=== PATIENT | male | born 1985 | race African-American/Black ===

== ENCOUNTER 2017-04-07 15:53 | Inpatient (IN) | payer SELFPAY ==
[2017-04-07] MEDS ORDERED: Ondansetron HCl/PF 4 MG/2 ML Vial ONE (16:26)
[2017-04-07] MEDS ORDERED: Morphine 4 MG/ML VIAL ONE (16:39)
[2017-04-07 16:45] LABS: #Basophils 0.2 thou/uL (0.0-0.2); #Eosinphils 0.1 thou/uL (0.0-0.7); #Lymphocytes 2.4 thou/uL (1.20-3.40); #Monocytes 1.2 thou/uL (0.11-0.59); #Neutrophils 10.6 thou/uL (1.40-6.50); %Basophils 1.1 % (0.0-1.0); %Eosinophils 0.7 % (0.0-10.0); %Lymphocytes 16.6 % (21.0-51.0); %Monocytes 8.5 % (0.0-10.0); Hematocrit 55.5 % (42.0-52.0); Mean Platelet Volume 7.6 fL (7.4-10.4); Red Blood Cell (RBC) Count 5.93 mill/uL (4.70-6.10); White Blood Cell (WBC) Count 14.6 thou/uL (4.8-10.8)
[2017-04-07 17:06] LABS: ALT (SGPT) 22 U/L (8-55); AST (SGOT) 18 U/L (5-34); Alkaline Phosphatase 115 U/L (40-150); Anion Gap 22 mmol/L (10-20); BUN (Urea Nitrogen) 33 mg/dL (8.9-20.6); Bilirubin, Total 0.6 mg/dL (0.2-1.2); Calc. Creatinine Clearance 0 mL/min (70-130); Carbon Dioxide 26 mmol/L (22-29); Chloride 90 mmol/L (98-107); Estimated GFR-MDRD 19; Globulin 4.5 g/dL (2.4-3.5); Lipase 36 U/L (8-78); Protein, Total 10.1 g/dL (6.0-8.3)
[2017-04-07 18:32] LABS: Bilirubin Small (Negative); Blood, Urine Negative (Negative); Glucose, Urine (Dipstick) Negative (Negative); Ketone, Urine Trace mg/dL (Negative); Nitrite Negative (Negative); Protein, Urine (Dipstick) 300 mg/dL (Neg-Trace); Urobilinogen 0.2 mg/dL (0.2-1.0)
[2017-04-07 18:34] LABS: RBC/HPF 0-3 HPF (0-3)
[2017-04-07 18:42] LABS: Potassium, Urine 70.8 mmol/L
[2017-04-07 18:43] LABS: Amphetamine Not Detected (NotDetected); Methadone Not Detected (NotDetected); Methamphetamine Detected (NotDetected)
--- NOTE | 2017-04-07 18:46 | CT ---
CT ABDOMEN AND PELVIS NONCONTRAST: History: Left flank pain. FINDINGS: Each renal collecting system, uterus, and urinary bladder are decompressed. A 0.2 cm calculus is pres ent within a nondilated césar at the inferior pole of the left kidney. Lack of contrast limits evaluation for other abnormalities. No evidence of bowel obstruction. There i s S-shaped curvature of the thoracolumbar spine. IMPRESSION: Tiny nonobstructing left renal calculus. POS: IVET
[2017-04-07 18:50] LABS: Bacteria/HPF 4+ HPF (None Seen); Hyaline Casts/LPF NONE SEEN LPF (0-3 Hyaline); Yeast-All Forms None Seen HPF (None Seen)
[2017-04-07 20:31] LABS: Acetaminophen Less than 6.0 mcg/mL (10.0-30.0); Salicylate Less than 8.0 mg/dL (15.0-30.0)
[2017-04-07] MEDS ORDERED: cefTRIAXone\\ROCEPHIN 2 GM in Sodium Chloride 0.9% 100 ML IVPB SCH (20:45)
[2017-04-07] MEDS ORDERED: Potassium Chloride 40 MEQ in Sodium Chloride 0.9% 500 ML IVPB SCH (21:30)
--- NOTE | 2017-04-07 22:18 | CON ---
DATE OF CONSULTATION: 04/07/2017 REASON FOR CONSULTATION: Elevated creatinine and hyperkalemia. HISTORY OF PRESENT ILLNESS: A 31-year-old gentleman who basically presented to the emergency room wi th nausea, vomiting, and abdominal pain. The patient was noted to have a creatinine of 4.3. The pat gabriel has a history of drug use and prior creatinine was 0.9 on 03/19/2017, so this is an acute increa se in the last few days. The patient has a history of opioids as well as methamphetamines as well as cocaine in his system. The patient can give no further inciting cause. PAST MEDICAL HISTORY: Significant for renal calculus, nonobstructing. SOCIAL HISTORY: History of drug use. ALLERGIES: Reviewed. HOME MEDICATIONS: List reviewed. REVIEW OF SYSTEMS: Fifteen point review of systems was performed and negative except positives noted above. GENERAL: Weakness- HEAD: Headache- NECK: No swelling or lumps. NOSE: No epistaxis or discharge. EYES: No diplopia or pain. RESPIRATORY: Dyspnea- CARDIOVASCULAR: Chest pain- GASTROINTESTINAL: Nausea- /HAND THERMAL CUTTER: Hematuria- MUSCULOSKELETAL: No joint pain. NEUROPSYCHIATIC SYSTEMS: No suicidal ideation. No ideation. SKIN: Denies any rash or ulcer. CONSTITUTIONAL: No fever or chills. HOSPITAL MEDICATIONS: List reviewed. PHYSICAL EXAMINATION: GENERAL: Patient is awake, alert. VITAL SIGNS: Afebrile, pulse 75, breathing at 16, blood pressure was 160/70. GENERAL APPEARANCE AND MENTAL STATUS: Fair. HEAD/NECK: Normocephalic, atraumatic. EYES: EOMI. No deformity. EARS: Clear. No ulcers. NOSE: Intact. No lesions. MOUTH: Clear. No discharge. THROAT: Clear. No exudate. LUNGS: Clear. No crackles. CARDIAC: S1, S2. No rub. ABDOMEN: Benign. BS+. GENITALIA/RECTUM: Catherine absent. BACK/EXTREMITIES: Edema 0+ Ulcer- NEUROLOGICAL: Alert and motor intact. SKIN: Rash- Bruise- LYMPHATICS: Edema- Ulcer- LABORATORY DATA: Showed creatinine 4.3. ASSESSMENT AND RECOMMENDATIONS: 1. Acute kidney injury with chronic kidney disease, multifactorial cocaine can cause renal vasoconst riction and acute kidney injury in the setting of dehydration. Overall, no indication for dialysis. Continue gentle hydration. 2. Hypokalemia, recommend gentle potassium replacement. No urgent indication for dialysis at this t sraah.
[2017-04-07] MEDS ORDERED: Ondansetron HCl/PF 4 MG/2 ML Vial IVP PRN ×2 (22:36→22:39)
[2017-04-07] MEDS ORDERED: Ondansetron ODT 4 MG TAB SL PRN (22:36)
[2017-04-07] MEDS ORDERED: Bisacodyl 5 MG TAB PO PRN (22:39)
[2017-04-07] MEDS ORDERED: hydrALAZINE 20 MG/ML VIAL SLOW IVP PRN (22:39)
[2017-04-07] MEDS ORDERED: Benzonatate 100 MG CAP PO PRN (22:39)
[2017-04-07] MEDS ORDERED: cloNIDine 0.1 MG TAB PO PRN (22:39)
[2017-04-07] MEDS ORDERED: Nitroglycerin 0.4 MG TAB (25 Tab Bottle) SL PRN (22:39)
[2017-04-07] MEDS ORDERED: Loratadine 10 MG TAB PO PRN (22:39)
[2017-04-07] MEDS ORDERED: Calcium Carbonate 500 MG ChewTAB PO PRN (22:39)
[2017-04-07] MEDS ORDERED: traMADol HCl 50 MG TAB PO PRN (22:39)
[2017-04-07] MEDS ORDERED: Diabetic Tussin 200 MG/10 ML UDCUP PO PRN (22:39)
[2017-04-07] MEDS ORDERED: Acetaminophen 325 MG TAB PO PRN (22:39)
[2017-04-07] MEDS ORDERED: Senokot 8.6 MG TAB PO PRN (22:39)
[2017-04-07] MEDS ORDERED: Lorazepam 2 MG/ML VIAL SLOW IVP PRN (22:39)
[2017-04-07] MEDS ORDERED: Sodium Chloride 0.9% 1,000 ML IV SCH (22:45)
[2017-04-07 22:53] VITALS: BMI 23.5
[2017-04-07] MEDS ORDERED: Famotidine/PF 20 mg/2ml Vial SLOW IVP SCH (23:00)
[2017-04-07] MEDS ORDERED: Heparin 5,000 UNITS/ML VIAL SC SCH (23:00)
[2017-04-07] MEDS: Sodium Chloride 0.9% 1,000 ML IV SCH (23:32)
--- NOTE | 2017-04-08 00:49 | HP ---
DATE OF ADMISSION: 04/07/2017 PRIMARY CARE PHYSICIAN: None. CHIEF COMPLAINT: Abdominal pain and vomiting. HISTORY OF PRESENT ILLNESS: Mr. London is a 31-year-old -Algerian male without any significant past medical history, who presented to the ER with the above-mentioned complaint. History is mainly obtained by the patient himself and case has been discussed with the admitting ER physician. Electr onic medical records have been reviewed. According to Mr. London, he has been on cocaine binge for the last 3 days. He started to have signifi cant abdominal pain about 2 days ago that was followed with violent, vomiting after he ate one meal a t [employer]. It has lasted for at least last 2 days. It is not associated with any diarrhea, hemato chezia, or hematemesis. His abdominal pain is mainly left-sided and 10/10 in intensity. Nonradiatin g symptoms. No fevers, but he has noticed chills. He has also noticed that his urine is foul smelli ng and dark and he has burning with urination as well. With these symptoms, he presented to the [facility] room. In the emergency room, his initial workup included a CT scan of the abdomen and pelvis, which did not show any hydroureteronephrosis or obstruction or pancreatitis. He, however, did have gross abnormal ities in his serum chemistries with metabolic acidosis and acute renal insufficiency with a creatinin e of 4.30 and BUN of 33 with estimated GFR of 19. His known creatinine from earlier this month on was 0.98. His potassium is 3.4 today. His urine shows multiple bacteria, wbc's and trace k etones. His urine drug screen is positive for opiates, methamphetamines, cocaine and cannabinoids. His salicylate level, acetaminophen level and alcohol level are unremarkable. The patient denies any alcohol binge. He was given almost 3 liters of IV fluids in the emergency room along with Rocephin and is now being admitted for acute renal insufficiency. PAST MEDICAL HISTORY: None reviewed with the patient. PAST SURGICAL HISTORY: None reviewed with the patient ALLERGIES: No known medication allergies. CURRENT MEDICATIONS: None. SOCIAL HISTORY: The patient smokes 1-1/2 pack of cigarettes per day and routinely uses cocaine. He vehemently denies using amphetamines or narcotics. He has been smoking marijuana. FAMILY HISTORY: No significant family history of any kidney problems. His grandfather on both side had diabetes. REVIEW OF SYSTEMS: The following complete review of systems was negative, unless otherwise mentioned in the HPI or below: Constitutional: Weight loss or gain, ability to conduct usual activities. Skin: Rash, itching. Eyes: Double vision, pain. ENT/Mouth: Nose bleeding, neck stiffness, pain, tenderness. Cardiovascular: Palpitations, dyspnea on exertion, orthopnea. Respiratory: Shortness of breath, wheezing, cough, hemoptysis, fever or night sweats. Gastrointestinal: Poor appetite, abdominal pain, heartburn, nausea, vomiting, constipation, or diarr hea. Genitourinary: Urgency, frequency, dysuria, nocturia. Musculoskeletal: Pain, swelling. Neurologic/Psychiatric: Anxiety, depression. Allergy/Immunologic: Skin rash, bleeding tendency. Otherwise negative except as stated per HPI. It is negative except for those mentioned in the history and physical. LABORATORY DATA: CBC shows WBCs at 14.6 with 73% neutrophils, hemoglobin 18.7, and platelet count of 219. Serum chemistries show sodium of 135, potassium 3.4, chloride 90, anion gap 22, BUN 33, creati nine 4.30, calcium 11, lipase 36. Urinalysis shows wbc's, +4 bacteria, small bilirubin. Urine drug screen is positive for opiates, methamphetamines, cocaine and cannabinoids. CT scan of the abdomen a nd pelvis is done in the emergency room and per my review, has no acute obstruction. He has a tiny n onobstructing left renal calculi. No hydroureteronephrosis is seen. PHYSICAL EXAMINATION: VITAL SIGNS: Upon presentation include blood pressure 138/109, pulse of 86, respirations 18, tempera ture 98.6, saturating 98% on room air. GENERAL: No acute distress, lying comfortably in bed, acute, alert, oriented x3. HEENT: Mucous membrane is dry. No oropharyngeal exudate or erythema. Head is normocephalic, atraum atic. Pupils are equal, reactive to light and accommodation. Extraocular movements are intact. NECK: Supple without any lymphadenopathy, JVD or bruit. CHEST: Clear to auscultation without any wheezing, rales or rhonchi. ABDOMEN: Nondistended. No guarding, rebound, or rigidity. Mildly tender to palpation in the epigas tric region. EXTREMITIES: Free of any cyanosis, clubbing, or edema. NEUROLOGIC: Nonfocal. SKIN: Free of any rashes or bruises. Feels warm and dry to touch. PSYCHIATRIC: Normal affect. IMPRESSION AND PLAN: 1. Acute renal insufficiency. This is likely a combination of dehydration and giving prerenal azote maricruz along with renal vasospasm due to cocaine abuse. Acute tubular necrosis is most likely the scena yariel. At this time, he will be resuscitated with generous IV fluids and we will avoid all nephrotoxic medications, I have discussed his drug abuse and at this time, he is agreeable to change his behavio rs. We will also consult Nephrology for further recommendations. We will monitor renal function mala sely. 2. Hypokalemia. It will be replaced and rechecked. 3. Anion gap metabolic acidosis. This is secondary to acute renal insufficiency. Once again, we wi ll continue the IV fluids and recheck. 4. Urinary tract infection. He has received Rocephin in the emergency room, and we will continue e . Urine cultures will be sent. 5. Code status: FULL CODE. 6. Add deep venous thrombosis and gastrointestinal prophylaxis. 7. Add p.r.n. medication orders. DISPOSITION: The patient is currently being admitted for acute renal insufficiency and urinary tract infection. Further management will depend upon his clinical course. Estimated length of stay is at least 2 to 3 midnights.
[2017-04-08 05:35] LABS: #Basophils 0.1 thou/uL (0.0-0.2); #Eosinphils 0.1 thou/uL (0.0-0.7); #Lymphocytes 2.1 thou/uL (1.20-3.40); #Monocytes 1.1 thou/uL (0.11-0.59); %Basophils 0.7 % (0.0-1.0); %Eosinophils 1.3 % (0.0-10.0); %Lymphocytes 25.4 % (21.0-51.0); Mean Platelet Volume 7.8 fL (7.4-10.4); Red Blood Cell (RBC) Count 4.43 mill/uL (4.70-6.10); White Blood Cell (WBC) Count 8.4 thou/uL (4.8-10.8)
[2017-04-08 05:53] LABS: Anion Gap 13 mmol/L (10-20); BUN (Urea Nitrogen) 33 mg/dL (8.9-20.6); Calc. Creatinine Clearance 38 mL/min (70-130); Calcium 8.2 mg/dL (7.8-10.44); Carbon Dioxide 25 mmol/L (22-29); Chloride 102 mmol/L (98-107); Estimated GFR-MDRD 30
[2017-04-08 08:03] VITALS: TEMP 98.3
[2017-04-08] MEDS ORDERED: FLU VACC QS2017-18 36 mo. & older 0.5 ML SYRINGE IM ONE (09:00)
[2017-04-08] MEDS ORDERED: Heparin 5,000 UNITS/ML VIAL SC SCH ×2 (09:00→21:00)
[2017-04-08] MEDS: Sodium Chloride 0.9% 1,000 ML IV SCH (10:13)
--- NOTE | 2017-04-08 12:03 | PRG ---
DATE OF SERVICE: 04/08/2017 SUBJECTIVE: This is a 31-year-old gentleman being seen for acute kidney injury. The patient denies any nausea, vomiting, or chest pain. PHYSICAL EXAMINATION: GENERAL: Patient is awake, alert. VITAL SIGNS: Afebrile, pulse 50, breathing at 16, blood pressure 110/67. OBJECTIVE: See above. Awake, alert, in no acute distress. GENERAL APPEARANCE AND MENTAL STATUS: Fair. HEAD/NECK: Normocephalic. Atraumatic. EYES: EOMI. No deformity. EARS: Clear. No ulcers. NOSE: Intact. No lesions. MOUTH: Clear. No discharge. THROAT: Clear. No exudate. LUNGS: Clear. No crackles. CARDIAC: S1, S2. No rub. ABDOMEN: Benign. BS+. GENITALIA/RECTUM: Catherine absent. BACK/EXTREMITIES: Edema 0+ Ulcer- NEUROLOGICAL: Alert and motor intact. SKIN: Rash- Bruise- LYMPHATICS: Edema- Ulcer- LABORATORY: Creatinine is 2.9. IMPRESSION: 1. Acute kidney injury, improving. 2. Hypokalemia, stable. 3. Hyponatremia, stable. No indication for dialysis.
--- NOTE | 2017-04-08 12:15 | PDOC.PN ---
- Subjective Encounter Start Date: 04/08/17 Encounter Start Time: 08:20 -: old records requested/rev Patient seen and examined. No new complaints. No overnight events - Objective MAR Reviewed: Yes Vital Signs & Weight: Vital Signs (12 hours) Temp Pulse Resp BP Pulse Ox 04/08/17 08:03 98.3 F 58 L 16 110/67 98 04/08/17 04:00 98.1 F 65 20 111/74 100 Weight Weight 168 lb 6.4 oz I&O: 04/07/17 04/08/17 04/09/17 06:59 06:59 06:59 Intake Total 1540 Output Total 500 Balance 1040 Result Diagrams: 04/08/17 04:18 04/08/17 04:18 Radiology Reviewed by me: Yes Phys Exam - Physical Examination Constitutional: NAD HEENT: PERRLA, moist MMs, sclera anicteric Neck: no JVD, supple Respiratory: no wheezing, no rales, no rhonchi Cardiovascular: RRR, no significant murmur, no rub Gastrointestinal: soft, non-tender, no distention, positive bowel sounds Musculoskeletal: no edema, pulses present Neurological: non-focal, normal sensation Psychiatric: normal affect, A&O x 3 Skin: no rash, normal turgor Dx/Plan (1) Acute kidney failure Status: Acute (2) Polysubstance abuse Code(s): F19.10 - OTHER PSYCHOACTIVE SUBSTANCE ABUSE, UNCOMPLICATED Status: Chronic (3) Renal calculus, left Code(s): N20.0 - CALCULUS OF KIDNEY Status: Chronic (4) UTI (urinary tract infection) Status: Acute (5) Hypokalemia Code(s): E87.6 - HYPOKALEMIA Status: Resolved (6) Hyponatremia Code(s): E87.1 - HYPO-OSMOLALITY AND HYPONATREMIA Status: Resolved (7) Metabolic acidosis Code(s): E87.2 - ACIDOSIS Status: Resolved - Plan cont current plan of care, plan discussed w/ family, continue antibiotics * renal function improving * continue IVF * continue rocephin * follow culture * repeat labs tomorrow * counselled to avoid polysubstance. Review of Systems - Review of Systems ENT: negative: Ear Pain, Ear Discharge, Nose Pain, Nose Discharge, Nose Congestion, Mouth Pain, Mouth Swelling, Throat Pain, Throat Swelling, Other Respiratory: negative: Cough, Dry, Shortness of Breath, Hemoptysis, SOB with Excertion, Pleuritic Pain, Sputum, Wheezing Cardiovascular: negative: Chest Pain, Palpitations, Orthopnea, Paroxysmal Noc. Dyspnea, Edema, Light Headedness, Other Gastrointestinal: negative: Nausea, Vomiting, Abdominal Pain, Diarrhea, Constipation, Melena, Hematochezia, Other Genitourinary: negative: Dysuria, Frequency, Incontinence, Hematuria, Retention , Other Musculoskeletal: negative: Neck Pain, Shoulder Pain, Arm Pain, Back Pain, Hand Pain, Leg Pain, Foot Pain, Other Skin: negative: Rash, Lesions, Arnie, Bruising, Other - Medications/Allergies Allergies/Adverse Reactions: Allergies Allergy/AdvReac Type Severity Reaction Status Date / Time No Known Drug Allergies Allergy Verified 04/07/17 22:48 Medications: Current Medications Acetaminophen (Tylenol) 650 mg PO Q4H PRN PRN Reason: Headache/Fever or Pain Benzonatate (Tessalon) 100 mg PO Q4H PRN PRN Reason: Cough Bisacodyl (Dulcolax) 10 mg PO DAILYPRN PRN PRN Reason: Constipation Calcium Carbonate (Tums) 1,000 mg PO Q4H PRN PRN Reason: Heartburn or Indigestion Clonidine (Catapres) 0.1 mg PO Q4H PRN PRN Reason: Systolic BP > 160 Famotidine (Pepcid) 20 mg SLOW IVP Q24HR [facility] Guaifenesin (Robitussin Sf) 200 mg PO Q4H PRN PRN Reason: Cough Heparin Sodium (Porcine) (Heparin) 5,000 units SC BID [facility] Last Admin: 04/08/17 10:18 Dose: 5,000 units Hydralazine HCl (Apresoline) 10 mg SLOW IVP Q4H PRN PRN Reason: Systolic BP > 170 Ceftriaxone Sodium 1 gm/ (Sodium Chloride) 100 mls @ 200 mls/hr IVPB 2100 [facility] Sodium Chloride (Normal Saline 0.9%) 1,000 mls @ 200 mls/hr IV .Q5H [facility] Last Admin: 04/08/17 10:13 Dose: 1,000 mls Loratadine (Claritin) 10 mg PO DAILYPRN PRN PRN Reason: Sinus Symptoms Lorazepam (Ativan) 1 mg SLOW IVP Q4H PRN PRN Reason: Anxiety/Agitation Nitroglycerin (Nitrostat) 0.4 mg SL Q5MIN PRN PRN Reason: Chest Pain Ondansetron HCl (Zofran) 4 mg IVP Q6H PRN PRN Reason: Nausea/Vomiting Senna (Senokot) 2 tab PO HSPRN PRN PRN Reason: Constipation Tramadol HCl (Ultram) 50 mg PO Q12H PRN PRN Reason: Moderate Pain (4-6)
[2017-04-08] MEDS ORDERED: traMADol HCl 50 MG TAB PO PRN (13:38)
[2017-04-08] MEDS ORDERED: Senokot 8.6 MG TAB PO PRN (13:38)
[2017-04-08] MEDS ORDERED: Ondansetron HCl/PF 4 MG/2 ML Vial SLOW IVP PRN (13:39)
[2017-04-08] MEDS ORDERED: Ondansetron ODT 4 MG TAB SL PRN (13:39)
[2017-04-08] MEDS ORDERED: Nitroglycerin 0.4 MG TAB (25 Tab Bottle) SL PRN (13:39)
[2017-04-08] MEDS ORDERED: Lorazepam 2 MG/ML VIAL SLOW IVP PRN (13:40)
[2017-04-08] MEDS ORDERED: Loratadine 10 MG TAB PO PRN (13:40)
[2017-04-08] MEDS ORDERED: hydrALAZINE 20 MG/ML VIAL SLOW IVP PRN (13:41)
[2017-04-08] MEDS ORDERED: Diabetic Tussin 200 MG/10 ML UDCUP PO PRN (13:42)
[2017-04-08] MEDS ORDERED: cloNIDine 0.1 MG TAB PO PRN (13:42)
[2017-04-08] MEDS ORDERED: Acetaminophen 325 MG TAB PO PRN (13:43)
[2017-04-08] MEDS ORDERED: Calcium Carbonate 500 MG ChewTAB PO PRN (13:43)
[2017-04-08] MEDS ORDERED: Bisacodyl 10 MG SUPP PR PRN (13:43)
[2017-04-08] MEDS ORDERED: Sodium Chloride 0.9% 1,000 ML IV SCH (13:45)
[2017-04-08 17:24] VITALS: BP 122/71
[2017-04-08] MEDS ORDERED: cefTRIAXone\\ROCEPHIN 1 GM in Sodium Chloride 0.9% 100 ML IVPB SCH (21:00)
[2017-04-08] MEDS ORDERED: Famotidine/PF 20 mg/2ml Vial SLOW IVP SCH ×2 (21:00)
[2017-04-08] MEDS ORDERED: cefTRIAXone\\ROCEPHIN 1 GM, Syringe 0.4 ML in Sterile Water 9.6 ML SLOW IVP SCH (21:00)
--- NOTE | 2017-04-09 13:20 | DIS ---
DATE OF ADMISSION: 04/07/2017 DATE OF DISCHARGE: 04/08/2017 PRIMARY CARE PHYSICIAN: [facility] call admission. DISCHARGE DISPOSITION: Home against medical advice. PRIMARY DISCHARGE DIAGNOSES: Acute kidney failure, urinary tract infection, polysubstance abuse, lef t renal calculus, hypokalemia, hyponatremia, and metabolic acidosis. PRIMARY PROCEDURE/OPERATION: None. RADIOLOGICAL INVESTIGATION: Abdomen and pelvis CT scan showed nonobstructive left renal calculus. SIGNIFICANT LABORATORY DATA: CBC: WBC 8.4, hemoglobin 13.8, platelets 170, sodium 136, potassium 3. 7, BUN 33, creatinine 2.97, calcium 8.2. LFT normal, lipase 36. Urinalysis suggestive of UTI. Urin e drug screen positive for methamphetamine, cocaine, cannabinoids and opiates. Serum drug screen neg ative. Urine culture negative. DISCHARGE MEDICATIONS: Patient left against medical advice without any prescriptions. CONTRAINDICATIONS: None. CODE STATUS: FULL CODE. INPATIENT WOUND CARE COORDINATOR: Dr. Cool was following while in hospital. TEST RESULTS PENDING ON DISCHARGE: None. ALLERGIES: No known drug allergy. DISCHARGE PLAN: Post hospital, patient will follow up with primary care physician. HOSPITAL COURSE: A 31-year-old male who has polysubstance abuse who was admitted by Dr. Ortiz, ple ase see her H&P for further details. The patient presented to emergency room with nausea, vomiting, and abdominal pain. In the emergency room, CT abdomen and pelvis was done which showed nonobstructiv e left renal calculus. He was found with acute kidney failure. His urine drug screen was positive f or drugs including cocaine, marijuana, opiates, and methamphetamine. Patient was admitted to medical floor. He was given IV fluid. Initially, he had hypokalemia, metabolic acidosis, hyponatremia, all resolved. Patient's renal function was improving, but he was not ready for discharge. The patient was getting antibiotic therapy and his leukocytosis improved. He had no fever while in h ospital. This patient decided to leave against medical advice. The patient is seen and examined at bedside today. Please see my progress note from today for furthe r details. The patient left without any prescription.
== END 2017-04-08 18:23 | disposition left against medical advice (07) | DRG 683 ==
LOC: ERS 15:53 → ERHOLD 19:52 → T4-A 22:18 → UNDODISIN 04-08 13:00
PROVIDERS: ADMIT Internal Medicine; ATTEND Internal Medicine
DX: N17.9 Acute kidney failure, unspecified (principal); N39.0 Urinary tract infection, site not specified; E87.2 Acidosis; E87.1 Hypo-osmolality and hyponatremia; F19.10 Other psychoactive substance abuse, uncomplicated; N20.0 Calculus of kidney; E87.6 Hypokalemia; E86.0 Dehydration; Z53.21 Procedure and treatment not carried out due to patient leaving prior to being seen by health care provider; F17.210 Nicotine dependence, cigarettes, uncomplicated; F12.10 Cannabis abuse, uncomplicated; F14.188 Cocaine abuse with other cocaine-induced disorder; Z23 Encounter for immunization
CPT/HCPCS: 36415; 74176; 80048; 80053; 80306; 80307; 81003; 81015; 82550; 83690; 84133; 84300; 85025; 87086; 90471; 90682; 90732; 96361; 96365; 96375; A4216; G0008; G0009; J0696; J1644; J2270; J2405; J3480; J7050; Q2036; S0028

== ENCOUNTER 2018-12-10 08:24 | Inpatient (IN) | payer OTHER, SELFPAY ==
[2018-12-10] MEDS ORDERED: Midazolam HCl 5 mg/ml Vial ONE (08:30)
[2018-12-10] MEDS ORDERED: fentaNYL Citrate/PF 2,000 MCG in Sodium Chloride 0.9% 60 ML IV SCH (08:33)
[2018-12-10] MEDS ORDERED: Fentanyl 100 MCG/2 ML VIAL ONE (08:41)
[2018-12-10] MEDS ORDERED: diphenhydrAMINE 50 MG/ML VIAL ONE (08:42)
[2018-12-10] MEDS ORDERED: methylPREDNISolone Sod Succ/PF 125 MG/2 ML VIAL ONE (08:42)
[2018-12-10] MEDS ORDERED: Famotidine/PF 20 mg/2ml Vial ONE (08:42)
[2018-12-10 09:05] LABS: #Basophils 0.1 thou/uL (0.0-0.2); #Eosinphils 0.2 thou/uL (0.0-0.7); #Lymphocytes 1.9 thou/uL (1.20-3.40); #Monocytes 0.4 thou/uL (0.11-0.59); #Neutrophils 3.2 thou/uL (1.40-6.50); %Basophils 1.5 % (0.0-1.0); %Eosinophils 3.5 % (0.0-10.0); %Lymphocytes 32.2 % (21.0-51.0); %Monocytes 7.4 % (0.0-10.0); %Neutrophils 55.5 % (42.0-75.0); Hemoglobin 12.7 g/dL (14.0-18.0); Mean Corpuscular HGB CONC 32.6 g/dL (32.0-36.0); Mean Corpuscular Hemoglobin 28.7 pg (27.0-31.0); Mean Corpuscular Volume 88.1 fL (78.0-98.0); Mean Platelet Volume 7.8 fL (7.4-10.4); Platelet Count 202 thou/uL (130-400); RBC Distribution Width 11.9 % (11.5-14.5); Red Blood Cell (RBC) Count 4.41 mill/uL (4.70-6.10); White Blood Cell (WBC) Count 5.7 thou/uL (4.8-10.8)
[2018-12-10 09:23] LABS: Actual Bicarbonate (HCO3a) 24.1 mEq/L (22-28); Analyzer IN Cardio ER; Base Excess (BEa) -2.1 mEq/L (-2.0 to +3.0); Calcium, Ionized 1.17 mmol/L (1.12-1.30); Carboxyhemoglobin (COHb) 0.3 gm% (0.0-3.0); Hemoglobin (Hb) 13.6 g/dL (14.0-18.0); O2 Tension (PaO2) 94.4 mmHg (80.0-100.0); Potassium - ABG Lab 4.39 mmol/L (3.70-5.30); pH, Arterial 7.33 (7.35-7.45)
--- NOTE | 2018-12-10 09:23 | RAD ---
XR Chest 1 View Portable 12/10/2018 8:44 AM Indication: Elevated d-dimer, productive cough and shortness of breath Technique: Multiple CTA images were obtained of the thorax with IV contrast. 3D reformatted images were constructed from the raw data. Comparison: None Findings: Pulmonary arteries: No central or segmental pulmonary embolus is evident. Heart and Great Vessels: There is a right IJ central venous catheter. There are mild vascular calcif ications involving thoracic aorta. Heart and great vessels otherwise are within normal limits. Lungs:The lungs are clear. Pleural space: Clear. Upper Abdomen: No acute abnormality. Osseous Structures: No acute osseous abnormality. Impression: No central or segmental pulmonary embolus.
[2018-12-10 09:24] LABS: ALT (SGPT) 44 U/L (8-55); AST (SGOT) 115 U/L (5-34); Alkaline Phosphatase 91 U/L (40-150); Anion Gap 11 mmol/L (10-20); BUN (Urea Nitrogen) 13 mg/dL (8.9-20.6); Bilirubin, Total 0.4 mg/dL (0.2-1.2); Calc. Creatinine Clearance 0 mL/min (70-130); Carbon Dioxide 24 mmol/L (22-29); Chloride 105 mmol/L (98-107); Estimated GFR-MDRD Greater than 90; Globulin 2.9 g/dL (2.4-3.5); Glucose 111 mg/dL (70-105); Potassium 4.1 mmol/L (3.5-5.1); Protein, Total 6.9 g/dL (6.0-8.3); Sodium 136 mmol/L (136-145)
[2018-12-10 09:25] LABS: Puncture Site RBRACH
[2018-12-10 09:38] LABS: Prothrombin Time 13.2 SEC (12.0-14.7)
[2018-12-10 09:41] LABS: CRP (Inflammatory) 3.55 mg/dL (= or < 0.5)
[2018-12-10 09:51] LABS: PTT 21.6 SEC (22.9-36.1)
[2018-12-10 09:58] LABS: Complement-C4 27.2 mg/dL (15-53)
[2018-12-10] MEDS ORDERED: Dexamethasone 10 MG in Sodium Chloride 0.9% 50 ML IVPB SCH (10:00)
[2018-12-10 10:11] VITALS: BP 107/85
[2018-12-10] MEDS ORDERED: Calcium Carbonate 500 MG ChewTAB PO PRN (10:33)
[2018-12-10] MEDS ORDERED: Ondansetron ODT 4 MG TAB PO PRN (10:33)
[2018-12-10] MEDS ORDERED: Ondansetron PF 4 MG/2 ML Vial IVP PRN (10:33)
[2018-12-10] MEDS ORDERED: Acetaminophen 325 MG TAB PO PRN (10:33)
[2018-12-10] MEDS ORDERED: Nitroglycerin 2% Ointment 1 INCH/1 GM Packet TOP PRN (10:36)
[2018-12-10] MEDS ORDERED: cloNIDine 0.1 MG TAB PO PRN (10:36)
[2018-12-10] MEDS ORDERED: Labetalol HCl 100 MG/20 ML VIAL SLOW IVP PRN (10:36)
--- NOTE | 2018-12-10 10:37 | CON ---
DATE OF CONSULTATION: HISTORY OF PRESENT ILLNESS: Branden London is a 32-year-old gentleman, who is present in the ICU, intubated on the vent, sedated. I see the medication that he was given prior to his arrival over here post-intubation including Versed and fentanyl. I also see that he was given rocuronium, 125 of Solu-Medrol, and 20 of Pepcid. He is from the skilled nursing system in [place]. Obviously, unable to get any history from the patient, but he has been here before. CHRONIC MEDICATIONS: 1. Amlodipine 5. 2. Aspirin. 3. Benadryl p.r.n. 4. Lisinopril 5 mg. PAST MEDICAL HISTORY: Pertinent for hypertension. Previous admission here about a year ago for what sounds like past medical history of renal calculus and elevated renal function. Polysubstance drug abuse. . PHYSICAL EXAMINATION: HEENT: His tongue does not appear to be markedly swollen. His lips are not swollen. I put in the back of his throat, did not look bad. He has a leak with a #[address]. VITAL SIGNS: Pulse 72, blood pressure 120/75, saturations 90, respiratory rate is 15. CHEST: Bilateral rhonchi. CARDIAC: Sinus tach. ABDOMEN: Soft. LABORATORY DATA: White count 5000, hemoglobin 12, hematocrit 38, and platelet count is normal. PO2 is 94, pCO2 of 40, pH 7.37 on 50%, rate of 10. His chest x-ray shows right lung atelectatic changes, possibly atelectasis. No previous x-ray for comparison. IMPRESSION: 1. Status post respiratory failure, presumed angioedema from HECTOR though when I look at his list of medicine, I do not see any lisinopril on his list of medication. 2. History of hypertension. 3. History of previous renal failure. 4. History of previous drug abuse from previous medical records. PLAN: I am going to hold off sedation. Continue leak test. May consider extubation and comfort care. Continue steroids. Continue Pepcid. Continue neb treatments. Empiric antibiotics. TIME SPENT: 45 minutes critical time. Job ID: [id number]
--- NOTE | 2018-12-10 11:01 | HP ---
PRIMARY CARE PHYSICIAN: The patient is an inmate. CHIEF COMPLAINT: Shortness of breath. HISTORY OF PRESENT ILLNESS: The patient is a 32-year-old male with hypertension , on lisinopril, currently incarcerated, was brought into the emergency room with shortness of breath. He was intubated by the emergency room with 6.0 endotracheal tube. History was obtained from the ER chart. The patient complained of tongue and throat swelling since yesterday. Lisinopril was changed to amlodipine for this reason. His swelling gradually progressed. He was significantly short of breath when EMS arrived. No other information is available from the patient or the guards at this time. PAST MEDICAL HISTORY: 1. Hypertension. 2. Hypothyroidism. PAST SURGICAL HISTORY: None per ER record. ALLERGIES: NO KNOWN DRUG ALLERGIES PRIOR TO THIS ADMISSION. CURRENT MEDICATIONS: At the unit, 1. Amlodipine 5 mg daily. Amlodipine was started yesterday and lisinopril was discontinued. 2. Aspirin 81 mg daily. 3. Benadryl was administered last night. SOCIAL HISTORY: The patient is currently incarcerated. He smokes up to 1-1/2- pack a day from review of previous record. He has a history of cannabis abuse. FAMILY HISTORY: Positive for diabetes. REVIEW OF SYSTEMS: Cannot be obtained from the patient due to current mentation. PHYSICAL EXAMINATION: VITAL SIGNS: Temperature 97.9, respirations of 16, pulse rate of 91, blood pressure of 113/77 with O2 saturation 96% on ventilation. GENERAL: A 32-year-old male, intubated and sedated on mechanical ventilation. HEENT: Head, atraumatic and normocephalic. Sclerae anicteric. Tongue swelling noted. Endotracheal tube noted. NECK: Supple. No stridor. Trachea in midline. LUNGS: Showed scattered rhonchi. No wheezing or rales. Lungs are symmetrical. HEART: S1 and S2 present. Regular rate and rhythm. No rubs or gallops. ABDOMEN: Soft. Bowel sounds present. No guarding or rigidity. EXTREMITIES: No edema or calf tenderness. NEUROLOGY AND PSYCHIATRY: Could not be done due to current mentation. SKIN: Warm and dry. LYMPH NODES: No palpable lymph nodes in the neck. PERIPHERAL VASCULAR: Radial pulses palpable bilaterally. MUSCULOSKELETAL: No joint swelling noted. LABORATORY FINDINGS: WBC 5.7, hemoglobin 12.7, hematocrit 38.9, platelet 202. INR 1.0. ABG showed pH 7.33, pCO2 of 47, pO2 of 94.4, bicarbonate 24.1. CRP 3.55. Troponin was negative. Complement C4 level was 27.2. BUN 13, creatinine 0.93, sodium 136, potassium 4.1. Chest x-ray by my review was negative for infiltrate or edema. EKG by my review showed sinus rhythm without significant ST-T wave changes. IMPRESSION: 1. Acute hypoxic respiratory failure secondary to angioedema. 2. Hypertension. 3. Hypothyroidism, currently on no medications. 4. Ongoing tobacco abuse. PLAN: The patient will be monitored in the intensive care unit. We will consult Critical Care, Dr. Cabezas. We will continue IV steroids, H1 and H2 blockers. Lisinopril has been discontinued and added in the allergy. His C4 level is normal. CRP is elevated. There is no other obvious etiology for angioedema on this patient. There is no recent NSAID use per records from the unit. The patient will require 2 to 3 days for stabilization. Job ID: [id number] [facility] NETWORKAlma Rosa
[2018-12-10] MEDS: Sodium Chloride 0.9% 1,000 ML IV SCH ×2 (11:11→18:28)
[2018-12-10] MEDS ORDERED: diphenhydrAMINE 50 MG/ML VIAL IVP PRN (11:27)
--- NOTE | 2018-12-10 12:49 | RAD ---
PORTABLE CHEST 1 VIEW: Date: 12/10/18 Time: 0813 hours HISTORY: Respiratory failure, angioedema. FINDINGS/IMPRESSION: There is an endotracheal tube with tip at the level of the clavicular heads. There is a nasogastric t ube in the stomach. The heart size is borderline. There is suggestion of a right pleural effusion wit h adjacent atelectatic change. POS: H
[2018-12-10] MEDS ORDERED: diphenhydrAMINE 50 MG/ML VIAL IVP SCH (14:00)
[2018-12-10] MEDS: Famotidine/PF 20 mg/2ml Vial SLOW IVP SCH (20:44)
[2018-12-11 04:00] LABS: #Lymphocytes 1.2 thou/uL (1.20-3.40); #Monocytes 0.7 thou/uL (0.11-0.59); #Neutrophils 10.8 thou/uL (1.40-6.50); %Eosinophils 0.1 % (0.0-10.0); %Lymphocytes 9.4 % (21.0-51.0); %Monocytes 5.3 % (0.0-10.0); %Neutrophils 85.2 % (42.0-75.0); Hemoglobin 12.6 g/dL (14.0-18.0); Mean Corpuscular HGB CONC 33.3 g/dL (32.0-36.0); Mean Corpuscular Hemoglobin 29.8 pg (27.0-31.0); Mean Corpuscular Volume 89.5 fL (78.0-98.0); Mean Platelet Volume 7.8 fL (7.4-10.4); Platelet Count 214 thou/uL (130-400); RBC Distribution Width 11.8 % (11.5-14.5); Red Blood Cell (RBC) Count 4.22 mill/uL (4.70-6.10); White Blood Cell (WBC) Count 12.7 thou/uL (4.8-10.8)
[2018-12-11 04:20] LABS: Anion Gap 15 mmol/L (10-20); BUN (Urea Nitrogen) 13 mg/dL (8.9-20.6); Calc. Creatinine Clearance 128 mL/min (70-130); Calcium 9.4 mg/dL (7.8-10.44); Carbon Dioxide 20 mmol/L (22-29); Chloride 104 mmol/L (98-107); Estimated GFR-MDRD Greater than 90; Glucose 113 mg/dL (70-105); Magnesium 1.4 mg/dL (1.6-2.6); Potassium 4.2 mmol/L (3.5-5.1); Sodium 135 mmol/L (136-145)
[2018-12-11] MEDS: Sodium Chloride 0.9% 1,000 ML IV SCH ×2 (04:52→13:33)
--- NOTE | 2018-12-11 07:44 | RAD ---
EXAM: Single view of the chest HISTORY: Ventilated patient with respiratory failure COMPARISON: 12/10/2018 FINDINGS: Single view of the chest shows a normal sized cardiomediastinal silhouette. The endotrache al tube and NG tube have been removed. There is no evidence of consolidation, mass, or pleural effusion. The bones are unremarkable. IMPRESSION: No evidence of acute cardiopulmonary disease
[2018-12-11] MEDS ORDERED: Magnesium Sulfate 4 GM in Sodium Chloride 0.9% 250 ML 250 ML IVPB SCH (08:00)
[2018-12-11] MEDS ORDERED: methylPREDNISolone Sod Succ 40 MG VIAL IVP SCH (08:00)
--- NOTE | 2018-12-11 08:41 | PRG ---
DATE OF SERVICE: 12/11/2018 SUBJECTIVE: Branden London, this morning, is awake, alert, and responsive. He is extubated yesterday. He is in no distress. OBJECTIVE: VITAL SIGNS: Temperature 98, pulse 74, blood pressure 130/80, and respirations 18. CHEST: No wheezing or crackles. CARDIAC: Normal S1 and S2. No gallops. ABDOMEN: No masses. LABORATORY DATA: Unremarkable. IMPRESSION: 1. Respiratory failure, presumes angioedema secondary to HECTOR. 2. Hypertension. PLAN: Pulmonary-arechiga, he is in stable condition. He can be transferred out of the ICU. In fact, he can be transferred back to the intermediate unit. Job ID: [id number]
[2018-12-11] MEDS ORDERED: Enoxaparin Sodium 40 MG/0.4 ML SYRINGE SC SCH (09:00)
[2018-12-11] MEDS: Famotidine/PF 20 mg/2ml Vial SLOW IVP SCH (09:25)
[2018-12-11 15:47] VITALS: TEMP 98.4
--- NOTE | 2018-12-11 19:22 | DIS ---
DATE OF ADMISSION: 12/10/2018 DATE OF DISCHARGE: 12/11/2018 DISCHARGE DISPOSITION: The patient is an inmate. DISCHARGE MEDICATIONS: 1. Prednisone 20 mg b.i.d. for next 3 days. 2. Pepcid 20 mg b.i.d. for 6 days. 3. EpiPen as needed. 4. Benadryl 25 mg 3 times daily for next 3 days. 5. Amlodipine 5 mg daily. ALLERGIES: THE PATIENT IS ALLERGIC TO LISINOPRIL. THE PATIENT WAS SEEN AND EXAMINED ON THE DAY OF DISCHARGE. DENIES ANY NEW COMPLAINTS. NO CHEST PAIN, SHORTNESS OF BREATH, OR PALPITATIONS. NO SWALLOWING DIFFICULTY. BRIEF HOSPITAL COURSE: The patient is a 32-year-old male with hypertension, on lisinopril, [facility] with shortness of breath. He was emergently intubated with 6.0 endotracheal tube. He started having tongue and throat swelling since yesterday. He was admitted to the intensive care unit with a diagnosis of HECTOR inhibitor-induced angioedema. He showed good improvement with IV steroids, H1 and H2 blockers. He was extubated this morning. He does not have any swallowing difficulty or shortness of breath. He tolerated regular meals today. He will continue prednisone along with H1 and H2 blockers for next 3 days. Lisinopril has been discontinued. Tobacco cessation was emphasized. He has been cleared by Pulmonary for discharge. DIAGNOSTIC TESTS: C4 level was normal. CRP was 3.55. Magnesium was 1.4. FINAL DIAGNOSES: 1. Acute hypoxic respiratory failure, secondary to HECTOR inhibitor-induced angioedema. 2. Hypertension. 3. Hypothyroidism, currently on no medications. 4. Ongoing tobacco abuse. The patient was counseled. 5. Hypomagnesemia, replaced. 6. Chronic anemia. TIME SPENT: Total time coordinating the discharge of this patient was 37 minutes. Job ID: [id number]
== END 2018-12-11 16:20 | DRG 915 ==
LOC: ERS 08:24 → CCU 08:58 → EEVIPCON 08:58
PROVIDERS: ADMIT Internal Medicine; ATTEND Internal Medicine
PROC: 5A1935Z Respiratory Ventilation, Less than 24 Consecutive Hours (ICD-10-PCS; principal; 2018-12-10)
DX: T78.3XXA Angioneurotic edema, initial encounter (principal); J96.01 Acute respiratory failure with hypoxia; I10 Essential (primary) hypertension; E03.9 Hypothyroidism, unspecified; T44.5X5A Adverse effect of predominantly beta-adrenoreceptor agonists, initial encounter; F17.210 Nicotine dependence, cigarettes, uncomplicated; Z79.82 Long term (current) use of aspirin; Z88.8 Allergy status to other drugs, medicaments and biological substances
CPT/HCPCS: 36415; 71045; 80048; 80053; 82805; 83735; 84484; 85025; 85610; 85730; 86140; 86160; 86850; 86900; 86901; 93005; 94002; 94640; J1100; J1200; J1650; J2250; J2920; J2930; J3010; J3475; J3490; J7050; J7620; S0028

== ENCOUNTER 2019-03-08 00:42 | Emergency (ER) | payer SELFPAY | END 2019-03-08 01:20 | disposition home or self-care (01) | LOC: SCSER 00:42 | DX: R60.0 Localized edema (principal); E03.9 Hypothyroidism, unspecified; I10 Essential (primary) hypertension; F17.210 Nicotine dependence, cigarettes, uncomplicated | CPT/HCPCS: 99282 ==

== ENCOUNTER 2022-04-03 12:47 | Emergency (ER) | payer SELFPAY ==
[~2022-04-03 12:47] MED LIST: Iopamidol-370 76% 500 ML 1 ML ONE
[2022-04-03] MEDS ORDERED: Morphine 4 MG/ML VIAL ONE (14:04)
[2022-04-03] MEDS ORDERED: Ondansetron PF 4 MG/2 ML Vial ONE (14:04)
[2022-04-03 14:11] LABS: #Basophils 0.1 thou/uL (0.0-0.2); #Eosinphils 0.3 thou/uL (0.0-0.7); #Lymphocytes 2.5 thou/uL (1.20-3.40); #Monocytes 0.8 thou/uL (0.11-0.59); #Neutrophils 7.2 thou/uL (1.40-6.50); %Basophils 0.8 % (0.0-1.0); %Eosinophils 2.3 % (0.0-10.0); %Lymphocytes 22.8 % (21.0-51.0); %Monocytes 7.7 % (0.0-10.0); %Neutrophils 66.3 % (42.0-75.0); Hemoglobin 16.8 g/dL (14.0-18.0); Mean Corpuscular Hemoglobin 31.7 pg (27.0-31.0); Mean Corpuscular Volume 93.1 fl (78.0-98.0); Mean Platelet Volume 8.3 fL (7.4-10.4); Platelet Count 188 10x3/uL (130-400); RBC Distribution Width 12.8 % (11.5-14.5); White Blood Cell (WBC) Count 10.8 10x3/uL (4.8-10.8)
[2022-04-03 14:32] LABS: ALT (SGPT) 16 U/L (8-55); AST (SGOT) 17 U/L (5-34); Albumin 4.8 g/dL (3.5-5.0); Alkaline Phosphatase 112 U/L (40-110); Anion Gap 14 mmol/L (10-20); BUN (Urea Nitrogen) 21 mg/dL (8.9-20.6); Bilirubin, Total 0.6 mg/dL (0.2-1.2); Calc. Creatinine Clearance 0 mL/min (70-130); Calcium 10.3 mg/dL (7.8-10.44); Carbon Dioxide 26 mmol/L (22-29); Chloride 101 mmol/L (98-107); Estimated GFR 59; Globulin 4.1 g/dL (2.4-3.5); Glucose 86 mg/dL (70-105); Lipase 57 U/L (8-78); Potassium 3.8 mmol/L (3.5-5.1); Protein, Total 8.9 g/dL (6.0-8.3); Sodium 137 mmol/L (136-145)
== END 2022-04-03 15:21 | disposition home or self-care (01) ==
LOC: ERS 12:47
DX: R10.9 Unspecified abdominal pain (principal); I10 Essential (primary) hypertension; F17.210 Nicotine dependence, cigarettes, uncomplicated; E03.9 Hypothyroidism, unspecified
CPT/HCPCS: 36415; 74177; 80053; 83690; 85025; 96374; 96375; J2270; J2405; Q9967

== ENCOUNTER 2023-07-20 17:46 | Emergency (ER) | payer SELFPAY | END 2023-07-20 19:47 | disposition left against medical advice (07) | LOC: ERS 17:46 | DX: Z53.21 Procedure and treatment not carried out due to patient leaving prior to being seen by health care provider (principal) ==

== ENCOUNTER 2023-07-22 12:07 | Emergency (ER) | payer SELFPAY ==
[2023-07-22] MEDS ORDERED: Ketorolac Tromethamine 30 MG (1 mL) VIAL ONE (12:44)
[2023-07-22] MEDS ORDERED: Lidocaine 4% Patch TD SCH (13:00)
[2023-07-23] MEDS ORDERED: Transdermal Patch Removal TOP SCH (01:00)
== END 2023-07-22 13:55 | disposition home or self-care (01) ==
LOC: ERS 12:07
DX: M54.50 Low back pain, unspecified (principal)
CPT/HCPCS: 72100; 96372; J1885

== ENCOUNTER 2024-04-10 01:26 | Emergency (ER) | payer SELFPAY ==
[2024-04-10] MEDS ORDERED: Cyclobenzaprine 10 MG TAB ONE (02:13)
[2024-04-10] MEDS ORDERED: Ibuprofen 800 MG TAB ONE (02:14)
== END 2024-04-10 03:45 | disposition home or self-care (01) ==
LOC: ERS 01:26
DX: M54.2 Cervicalgia (principal); M54.6 Pain in thoracic spine; V89.2XXA Person injured in unspecified motor-vehicle accident, traffic, initial encounter
CPT/HCPCS: 72072; 72125